=== PATIENT | male | born 1945 | race Caucasian/White ===

== ENCOUNTER → 2019-03-28 08:43 | Outpatient (CLI) | payer MEDICARE, OTHER, SELFPAY ==
--- NOTE | 2019-03-28 09:07 | MRI_ITS ---
HISTORY: TINNITUS, HEARING LOSS RIGHT EAR EXAMINATION: MR Brain WO/W Contrast TECHNIQUE: Multiplanar and multisequence MR images of the brain were obtained with and without IV gadolinium. IV Contrast dosage and agent: 15 cc Dotarem COMPARISON: None FINDINGS: PARANASAL SINUSES AND MASTOID AIR CELLS: Mild polypoid mucosal thickening floor of the right maxillary sinus. Otherwise clear. CALVARIUM: Unremarkable. INTRACRANIAL HEMORRHAGE: No evidence of intracranial hemorrhage. BRAIN PARENCHYMA: No acute infarct. Cerebrum, cerebellum and brainstem are unremarkable. Normal sella turcica, pituitary gland, infundibular stalk, optic chiasm and hypothalamus. The internal auditory canals are patent. No mass effect or midline shift. Central and cortical involutional changes are noted. Scattered chronic appearing small in size and number of FLAIR/T2 hyperintensities in the cerebral white matter. CONTRAST: No abnormal enhancement. CSF SPACES: Appropriate for age. There is no hydrocephalus. Patent basal cisterns. VASCULAR SYSTEM: Normal flow voids in the major intracranial circulation. ORBITS: Both globes, extraocular muscles, optic nerves and retrobulbar fat appear unremarkable. IMPRESSION: No acute intracranial process. Mild chronic microangiopathic change in the white matter. at 1110 Reported and signed by: Krzysztof Braun MD Electronically Signed: Krzysztof Braun, at 11:08 EDT Tel , Service support , HISTORY: TINNITUS, HEARING LOSS RIGHT EAR EXAMINATION: MR Attn IACs and/or Temporal Bones WO/W Contrast TECHNIQUE: Multiplanar and multisequence MR images of the brain and small field of view sequences of the internal auditory canals were obtained before and after the administration of IV contrast. IV Contrast dosage and agent: 15 cc Dotarem. COMPARISON: None FINDINGS: RIGHT SIDE: SUPERFICIAL SOFT TISSUES: Unremarkable. MASTOID AIR CELLS: Well aerated, unremarkable. EXTERNAL AUDITORY CANALS AND MIDDLE EAR CAVITIES: Well aerated. INTERNAL AUDITORY CANALS: Unremarkable bilateral internal auditory canals. No intracanalicular schwannoma. INNER EAR: Unremarkable cochlea, vestibule and semicircular canals. CONTRAST: No abnormal enhancement of CN VII or VIII. LEFT SIDE: SUPERFICIAL SOFT TISSUES: Unremarkable. MASTOID AIR CELLS: Well aerated, unremarkable. EXTERNAL AUDITORY CANALS AND MIDDLE EAR CAVITIES: Well aerated. INTERNAL AUDITORY CANALS: Unremarkable bilateral internal auditory canals. No intracanalicular schwannoma. INNER EAR: Unremarkable cochlea, vestibule and semicircular canals. CONTRAST: No abnormal enhancement of CN VII or VIII. VISUALIZED BRAIN AND POSTERIOR FOSSA: Cerebello-pontine angles are unremarkable. MRI/Brain W/WO Contrast IMPRESSION: Unremarkable pre and post-contrast MRI of the internal auditory canals. at 1111 Reported and signed by: Krzysztof Braun MD Electronically Signed: Krzysztof Braun, at 11:10 EDT Tel , Service support ,
[2019-03-28 09:45] LABS: CREATININE FINGERSTICK 0.9 mg/dL (0.70-1.30); EGFR FINGERSTICK > 60.0000 mL/min (>60)
== END ==
PROVIDERS: Family Provider Internal Medicine; PCP Internal Medicine; Referring Provider Otolaryngology Otolaryngology/Facial Plastic Surgery; Visit Provider Otolaryngology Otolaryngology/Facial Plastic Surgery
DX: H93.11 Tinnitus, right ear (principal); H91.91 Unspecified hearing loss, right ear
CPT/HCPCS: 70553; A9575

== ENCOUNTER 2022-10-17 13:10 | Emergency (ER) | payer MEDICARE, OTHER, SELFPAY ==
[2022-10-17 13:11] VITALS: BP 114/87; PULSE 155; RESP 15; TEMP 35.9; O2SAT 99; BMI 24.6
[2022-10-17 13:49] VITALS: BP 145/99; PULSE 152; RESP 18; O2SAT 99
--- NOTE | 2022-10-17 13:56 | EKG12_ITS ---
Test Reason : HIGH HR Blood Pressure : / mmHG Vent. Rate : 151 BPM Atrial Rate : 302 BPM P-R Int : 000 ms QRS Dur : 134 ms QT Int : 314 ms P-R-T Axes : 270 008 -76 degrees QTc Int : 497 ms Atrial flutter with 2:1 A-V conduction Non-specific intra-ventricular conduction block Nonspecific T wave abnormality Abnormal ECG Confirmed by TRENTON GIANG, ARACELI ([id number]), assignment desk editor KARISHMA LYNN ([id number]) on 10/19/2022 1:46:06 PM Referred By: BB Confirmed By:ARACELI CHOWDHURY MD
--- NOTE | 2022-10-17 13:59 | EKG12_ITS ---
Test Reason : RE CHACK Blood Pressure : / mmHG Vent. Rate : 069 BPM Atrial Rate : 069 BPM P-R Int : 166 ms QRS Dur : 076 ms QT Int : 350 ms P-R-T Axes : 059 007 055 degrees QTc Int : 375 ms Normal sinus rhythm with sinus arrhythmia Nonspecific ST and T wave abnormality Abnormal ECG Confirmed by TRENTON GIANG, ARACELI ([id number]), script editor KARISHMA LYNN ([id number]) on 10/19/2022 1:45:49 PM Referred By: Confirmed By:ARACELI CHOWDHURY MD
--- NOTE | 2022-10-17 14:05 | ED.RN ---
pt converted to sinus rhythm on own.
[2022-10-17 14:07] LABS: Absolute Lymphocyte Count 1.89 X10^3/uL (0.83-4.51); Absolute Neutrophil Count 4.7 X10^3/uL (2.0-7.7); Basophil# 0.07 X10^3/uL; Basophil% 0.9 % (0-1); Eosinophil# 0.12 X10^3/uL; Eosinophils% 1.6 % (0-5); Hematocrit 46.2 % (40-54); Hemoglobin 15.7 g/dL (13.0-16.5); Lymphocyte # 1.89 X10^3/ul (0.83-4.51); Lymphocyte % 25.2 % (19-41); Mean Corpuscular Hgb 31.3 pg (27.0-32.0); Mean Platelet Vol. 8.7 fl (6.2-12.0); Monocyte# 0.67 X10^3/uL; Monocyte% 8.9 % (0-10); NRBC Flagged by Analyzer 0 % (0-5); Neutrophil # 4.73 X10^3/uL (2.7-7.7); Platelet Count 240 K/mm3 (150-450); RBC Distribution Width CV 13.4 % (11.6-14.6); RBC Distribution Width SD 45.3 fl (35.1-43.9); Red Blood Count 5.02 M/mm3 (4.6-6.2); White Blood Count 7.5 K/mm3 (4.4-11.0)
[2022-10-17 14:24] LABS: Anion Gap 9 (5-15); BUN 16 mg/dL (7-18); BUN/Creat Ratio 14.7 RATIO (10-20); Calcium,Total 9.7 mg/dL (8.5-10.1); Chloride 105 mmol/L (98-107); Creatinine, Serum 1.09 mg/dL (0.70-1.30); EST Glomerular Filtration Rate 70 mL/min (>60); Est Glom Filt Rate - Afr Amer 84 mL/min (>60); Glucose 110 mg/dL (74-106); Potassium 3.6 mmol/L (3.5-5.1); Sodium Level 140 mmol/L (136-145); Troponin-I HS 40 pg/mL (3.0-78.0)
--- NOTE | 2022-10-17 15:45 | EDS_ITS ---
HPI History of Present Illness Chief Complaint: Palpitations Informant: patient Onset/Context/Timing Onset: Yesterday Context: Sudden Onset Timing: Intermittent and Lasts (hrs) Quality: racing HB Location: chest Current Severity: Moderate Maximum Severity: Moderate Worsened by: nothing in particular Relieved by: nothing Associated Symptoms Associated Symptoms: see below. no CP/sob/near-syncope or syncope. Narrative Narrative: Patient started having respiratory illness and feeling poorly 3 days ago he did a home COVID test that was positive. He is vaccinated against COVID. Yesterday started feeling palpitations off-and-on, more brief then today, he verified that his heart was very fast on his apple watch. He denies any other symptoms associated with this such as chest discomfort, dyspnea, lightheadedness or syncope. He went to [facility] urgent care today primarily to look into an oral antiviral. They did an EKG because of his tachycardia and seen that he was in a flutter referred him to the ER here. This is all according to the patient, who is the only independent historian here. He does not have a history of any cardiac illness/pathology, nor dysrhythmia. He states he has been drinking caffeine tries to help stay alert and awake, and taking decongestants recently since he has been ill. [facility] Medical History Arthritis Enlarged prostate Hyperlipemia Home Medications atorvastatin 20 mg tablet 20 mg PO DAILY 10/17/22 [History Last Taken Unknown] fluticasone propionate 50 mcg/actuation nasal spray,suspension 1 spray intranasal DAILY 10/17/22 [History Last Taken Unknown] loratadine 10 mg tablet (Claritin) 10 mg PO DAILY 10/17/22 [History Last Taken Unknown] meloxicam 15 mg tablet 15 mg PO PRN PRN Pain 10/17/22 [History Last Taken Unknown] metoprolol tartrate 25 mg tablet 25 mg PO BID #60 tabs 10/17/22 [Rx Last Taken Unknown] tamsulosin 0.4 mg capsule 0.4 mg PO DAILY 10/17/22 [History Last Taken Unknown] Allergy/AdvReac Type Severity Reaction Status Date / Time celecoxib [From Celebrex] Allergy Swelling Verified 10/17/22 13:11 Surgical History History of appendectomy Social History Smoking Status: Never smoker ROS ROS ED Constitutional Constitutional ED: Reports malaise; Denies chills or fever(s) Eyes Eyes: Denies change in vision or diplopia ENT ENT ED: Reports nasal congestion; Denies ear pain, rhinorrhea or sore throat Cardiovascular Cardiovascular: Reports palpitations and racing heartbeat; Denies chest pain Respiratory/Chest Respiratory/Chest: Reports cough; Denies dyspnea Gastrointestinal Gastrointestinal: Denies abdominal pain, diarrhea, nausea or vomiting Genitourinary Genitourinary ED: Denies dysuria or hematuria Musculoskeletal Musculoskeletal: Denies back pain or neck pain Integumentary Denies abscess or rash Neurologic Neurologic: Denies headache(s), paresthesias or weakness Psychiatric Psychiatric: Denies anxiety or suicidal thoughts EXAM Physical Exam Const Vital Signs: 10/17/22 13:11 10/17/22 13:47 10/17/22 13:49 Temperature 96.7 F L Temperature Source Temporal Pulse Rate 155 H 152 H Respiratory Rate 15 18 Respiratory Pattern Normal Blood Pressure 114/87 H 145/99 H Blood Pressure Mean 96 114 Pulse Ox 99 99 Oxygen Delivery Method Room Air Room Air Positive well nourished and well developed General Appearance ED: well developed and NAD HEENT Reports moist mucous membranes normocephalic and atraumatic Eyes PERRL and EOMs intact bilaterally Neck full ROM and supple Resp normal respiratory effort and clear to auscultation bilaterally Cardio regular rate and regular rhythm Rate: tachycardic GI non-tender and non-distended Auscultation: normoactive bowel sounds Palpation: soft Back/Spine no CVA tenderness General Back: other FROM Extremity normal to inspection General Extremety ED: Negative for edema, pulses abnormal or tenderness General Extremity: Negative for edema or pulses abnormal Neuro oriented x3, CN's II-XII intact bilaterally and no sensory deficits noted Sensorium / Orientation: awake and alert Motor Exam: strength 5/5 throughout Skin no rashes or lesions noted and no wounds MDM MDM MDM Narrative Medical decision making narrative: Patient has no history of DVT or PE, has no clinical signs of a DVT at this time , nor calf tenderness/Homans' sign which is negative, and does not have any symptoms of a PE either. Aside from his tachycardia his vital signs are normal. Working him up with electrolytes and a troponin, and we were going to administer adenosine in case this was antidromic atrial flutter, it could actually break it, also considering the option of electrocardioversion as well which I discussed with the patient. Prior to any of this even being started, the patient self-converted to normal sinus rhythm, felt his palpitations resolved, and repeat EKG shows sinus rhythm with the same morphology but resolution of the repolarization abnormalities which are likely rate dependent, and no acute ischemic abnormalities. His troponin returned within normal limits, he did not have any recurrence of his symptoms or dysrhythmia while in the emergency department. Discussed with Dr. Carpenter, he agrees with outpatient follow-up and recommends metoprolol tartrate 25 mg twice daily as well as a baby aspirin, this was relayed to the patient he is comfortable with that plan. Also discussed with the patient to avoid decongestants and other stimulants for now, and we also discussed the oral antivirals. He is vaccinated, the current variants are of decreased virulence, and I think that the benefits of the antivirals do not necessarily outweigh the potential risks especially since he is on cholesterol medication. He is understanding and comfortable with that plan. Lab Data Attestation: I reviewed the patient's lab results. Labs: Laboratory Results - last 24 hr 10/17/22 10/17/22 13:40 13:40 WBC 7.5 RBC 5.02 Hgb 15.7 Hct 46.2 MCV 92.0 MCH 31.3 MCHC 34.0 RDW Std Deviation 45.3 H RDW Coeff of Kumar 13.4 Plt Count 240 MPV 8.7 Immature Gran % (Auto) 0.400 Neut % (Auto) 63.0 Lymph % (Auto) 25.2 [place] % (Auto) 8.9 Eos % (Auto) 1.6 Baso % (Auto) 0.9 Absolute Neuts (auto) 4.7 Absolute Lymphs (auto) 1.89 Nucleated RBC % 0 Sodium 140 Potassium 3.6 Chloride 105 Carbon Dioxide 26.0 Anion Gap 9 BUN 16 Creatinine 1.09 Estim Creat Clear Calc 58.60 Est GFR (MDRD) Af Amer 84 Est GFR (MDRD) Non-Af 70 BUN/Creatinine Ratio 14.7 Glucose 110 H Calcium 9.7 Troponin I High Sens 40 Rhythm Strip Rhythm Strip: Atrial flutter Rate: 150 Ectopy: None EKG Initial EKG: Attestation: I personally reviewed and interpreted this EKG as follows: Interpretation: No Acute Injury Pattern, Atrial Flutter and Non-Specific ST Changes Follow-up EKG: Attestation: I personally reviewed and interpreted this EKG as follows: Interpretation: Sinus Rhythm and No Acute Injury Pattern Prior: Changed Discharge Plan Triage Chief Complaint: Palpitations ED Provider: Jonel Ortega Dx/Rx/DC Orders Clinical Impression: Paroxysmal atrial flutter, COVID-19 Instructions: ED Atrial Flutter Prescriptions: New metoprolol tartrate 25 mg tablet 25 mg PO BID Qty: 60 0RF No Action atorvastatin 20 mg tablet 20 mg PO DAILY Label Comments: TAKE 1 TABLET BY MOUTH ONCE DAILY AT BEDTIME meloxicam 15 mg tablet 15 mg PO PRN PRN (Reason: Pain) tamsulosin 0.4 mg capsule 0.4 mg PO DAILY Label Comments: TAKE 1 CAPSULE BY MOUTH ONCE DAILY AT BEDTIME fluticasone propionate [Flonase] 50 mcg/actuation Redig,Suspension 1 spray INTRANASAL DAILY Rx Instructions: administer into each nostril loratadine [Claritin] 10 mg Tablet 10 mg PO DAILY Primary Care Provider: Ector Rivera Referrals: Jeny Carpenter MD [Med Staff - Active Staff] - As soon as possible (call Wednesday for an appt) Ector Rivera MD [Primary Care Provider] - Activity Restrictions/Additional Instructions: Take baby aspirin once daily in addition to the prescription. Avoid decongestants including nasal sprays that contain phenylephrine, pseudoephedrine , oxymetazoline. Disposition Disposition: Home, Self Care
[2022-10-17 15:52] VITALS: BP 127/86; PULSE 69; RESP 16; O2SAT 99
--- NOTE | 2022-10-17 15:54 | ED.RN ---
patient converted on his own and adenosine was not given
[2022-10-17] MEDS: Aspirin 81 MG TAB.CHEW PO (15:58)
[2022-10-17] MEDS: Metoprolol Tartrate 50 MG Tablet 25 MG PO (15:58)
== END 2022-10-17 16:13 | disposition home or self-care (01) ==
PROVIDERS: Emergency Provider Emergency Medicine; PCP Internal Medicine; Visit Provider Emergency Medicine
DX: I48.92 Unspecified atrial flutter (principal); U07.1 COVID-19; E78.5 Hyperlipidemia, unspecified; N40.0 Benign prostatic hyperplasia without lower urinary tract symptoms; Z79.899 Other long term (current) drug therapy
CPT/HCPCS: 80048; 84484; 85025; 93005; 99284; J7030; A4216

== ENCOUNTER → 2022-11-25 | Outpatient (CLI) | payer MEDICARE, OTHER, SELFPAY ==
[2022-11-25 15:11] LABS: Anion Gap 8 (5-15); BUN 25 mg/dL (7-18); BUN/Creat Ratio 25.6 RATIO (10-20); Calcium,Total 9.8 mg/dL (8.5-10.1); Chloride 106 mmol/L (98-107); Creatinine, Serum 0.98 mg/dL (0.70-1.30); EST Glomerular Filtration Rate 79 mL/min (>60); Est Glom Filt Rate - Afr Amer 96 mL/min (>60); Glucose 107 mg/dL (74-106); Magnesium 2.2 mg/dL (1.6-2.6); Potassium 3.8 mmol/L (3.5-5.1); Sodium Level 144 mmol/L (136-145)
== END | disposition home or self-care (01) ==
LOC: LAB 14:09
PROVIDERS: PCP Internal Medicine; Visit Provider Internal Medicine Cardiovascular Disease
DX: I48.92 Unspecified atrial flutter (principal)
CPT/HCPCS: 36415; 80048; 83735

== ENCOUNTER → 2022-12-16 | Outpatient (CLI) | payer MEDICARE, OTHER, SELFPAY ==
--- NOTE | 2022-12-16 11:15 | STRESSREP_ITS ---
Stress Test Report Date: 12/16/2022 Procedure: Exercise tolerance test/imaging study Indications: Arrhythmia Consent: Per the patient Procedure: The patient exercised on a Chandana protocol for 7 minutes achieving a peak heart rate of 137 bpm (95% predicted maximal heart rate) with a peak blood pressure 160/90 mmHg and a peak MET capacity of 10.1 METs. The baseline ECG demonstrated sinus rhythm. The peak exercise ECG demonstrated no definitive ischemic changes. There were no cardiac dysrhythmias pretest, during exercise, or recovery. The functional capacity was considered average. There was no complaint of chest discomfort during exercise or recovery. The examination was discontinued secondary to target heart rate being achieved. The patient was injected with 11.7 mCi of technetium 99m Cardiolite and subsequently rest SPECT Cardiolite nuclear imaging was obtained in the horizontal long, vertical long, and short axis views. Post-exercise, the patient was injected with 36.0 mCi of technetium 99m Cardiolite and subsequently stress SPECT Cardiolite nuclear imaging was obtained in the horizontal long, vertical long, and short axis views. A gated Cardiolite study at peak stress was obtained. Rest and stress SPECT Cardiolite nuclear imaging status post realignment, normalization, and attenuation correction, demonstrates the appearance of relative uniform tracer uptake and myocardial perfusion appearing within normal limits. There is end systolic thickening and brightening. The gated Cardiolite study demonstrates myocardial thickening and inward wall motion. The reported LVEF is 64%. Impression: 1. Technically adequate (percent predicted maximal heart rate greater than 85%) exercise tolerance test 2. Peak exercise ECG with nondiagnostic changes 3. There were no cardiac dysrhythmias pretest, during exercise, or recovery 4. Rest and stress SPECT Cardiolite nuclear imaging demonstrate no fixed or reversible perfusion defects. 5. The gated Cardiolite study reports an LVEF of 64%. This note was generated with [employer] software. It may contain incorrect words, spelling, and punctuation that were not noted in checking the note before signing.
== END | disposition home or self-care (01) ==
LOC: CVS 06:38
PROVIDERS: PCP Internal Medicine; Referring Provider Internal Medicine Cardiovascular Disease; Visit Provider Internal Medicine Cardiovascular Disease
DX: I47.29 Other ventricular tachycardia (principal); R94.31 Abnormal electrocardiogram [ECG] [EKG]
CPT/HCPCS: 78452; 93017; A9500; A4216

== ENCOUNTER 2023-07-14 08:27 | Emergency (ER) | payer MEDICARE, OTHER, SELFPAY ==
[2023-07-14 08:28] VITALS: BP 123/91; PULSE 84; RESP 16; TEMP 36.4; O2SAT 97; BMI 24.3
[2023-07-14 08:37] VITALS: BP 115/102; PULSE 132; O2SAT 97
--- NOTE | 2023-07-14 08:59 | EKG12_ITS ---
Test Reason : PALPATATIONS Blood Pressure : / mmHG Vent. Rate : 132 BPM Atrial Rate : 000 BPM P-R Int : 000 ms QRS Dur : 060 ms QT Int : 306 ms P-R-T Axes : 000 000 -78 degrees QTc Int : 453 ms Atrial fibrillation with rapid ventricular response Nonspecific ST and T wave abnormality Abnormal ECG Confirmed by TRENTON GIANG, ARACELI ([id number]), editor in chief RUTH LUCIO ([id number]) on 07/20/2023 7:02:58 AM Referred By: Confirmed By:ARACELI CHOWDHURY MD
--- NOTE | 2023-07-14 08:59 | RAD_ITS ---
STUDY: X-RAY CHEST REASON FOR EXAM: Male, 77 years old. Palpitations -- -- PT STATES HE IS IN A FIB- HX OF THE SAME TECHNIQUE: Single AP portable view of the chest. COMPARISON: None. FINDINGS: EKG electrodes are seen. Hyperinflation. The lungs are clear. There is no demonstrated pleural abnormality. Normal size heart. Normal mediastinum and holland. Normal visualized pulmonary arteries. Normal visualized aortic arch and descending thoracic aorta. There are diffuse degenerative changes of the visualized thoracic spine. Normal visualized ribs, clavicles, and shoulders. There is no demonstrated abnormality of the visualized soft tissue structures of the upper abdomen. RAD/Chest 1 View (Portable) IMPRESSION: Hyperinflation. The lungs are clear. Electronically Signed: Trevor Solano MD at 9:59 EDT ,
--- NOTE | 2023-07-14 09:00 | EDS_ITS ---
HPI History of Present Illness Chief Complaint: Palpitations Informant: patient Onset/Context/Timing Onset: Today Narrative Narrative: Patient presents with palpitations and believes he is back in A-fib. He had epi sode of paroxysmal A-fib in October. He converted on his own. He was placed on carvedilol 6.25 mg twice daily but was not started on anticoagulation. Patient states he got up at 430 this morning to go the bathroom and felt palpitations. His Apple Watch told him his heart rate was 155. He denies chest pain. He does not feel lightheaded or dizzy. [facility] Medical History Abnormal EKG Actinic skin damage Arthritis BPH w urinary obs/LUTS Bradyarrhythmia COVID-19 Dyslipidemia Elevated PSA Enlarged prostate History of atrial flutter Hyperlipidemia Lumbar radiculopathy NSVT (nonsustained ventricular tachycardia) Osteoarthritis Paroxysmal atrial flutter Primary cutaneous T-cell lymphoma Rhinitis, nonallergic, chronic Vitamin D deficiency Home Medications atorvastatin 20 mg tablet 20 mg PO DAILY 10/17/22 [History Last Taken Unknown] tamsulosin 0.4 mg capsule 0.4 mg PO DAILY 10/17/22 [History Last Taken Unknown] aspirin 81 mg tablet,delayed release 81 mg PO DAILY 11/24/22 [History Last Taken Unknown] cholecalciferol (vitamin D3) 50 mcg (2,000 unit) capsule 50 mcg PO DAILY 11/24/22 [History Last Taken Unknown] fluticasone propionate 50 mcg/actuation nasal spray,suspension 2 spray intranasal DAILY 11/24/22 [History Last Taken Unknown] loratadine 10 mg tablet (Claritin) 10 mg PO DAILY PRN allergic symptoms 11/24/22 [History Last Taken Unknown] meloxicam 15 mg tablet 15 mg PO DAILY PRN Pain 11/24/22 [History Last Taken Unknown] multivitamin 1 tab PO DAILY 11/24/22 [History Last Taken Unknown] diclofenac sodium 1 % topical gel (Voltaren Arthritis Pain) 2 g topical ONCE PRN 11/25/22 [History Last Taken Unknown] carvedilol 6.25 mg tablet 6.25 mg PO BID #180 tabs 06/16/23 [Rx Last Taken Unknown] diltiazem HCl 180 mg capsule,extended release 24 hr (Cardizem CD) 180 mg PO DAILY #30 caps 07/14/23 [Rx Last Taken Unknown] rivaroxaban 15 mg (42)-20 mg (9) tablets in a starter pack (Xarelto DVT-PE Treatment 30-Day Starter) See Rx Instructions PO .COMPLEX #51 tabs 07/14/23 [Rx Last Taken Unknown] Allergy/AdvReac Type Severity Reaction Status Date / Time clindamycin Allergy Mild Hives Verified 07/14/23 08:29 celecoxib [From Celebrex] Allergy Swelling Verified 07/14/23 08:29 Family History Father Heart disease CAD (coronary artery disease) Surgical History History of appendectomy History of left cataract extraction (~11/2022) History of right cataract extraction (~12/2022) Social History Smoking Status: Never smoker alcohol intake: current alcohol intake frequency: holidays/special occasions only substance use type: does not use caffeine: Yes Type: coffee Number of servings: 2 ROS ROS ED Constitutional Constitutional ED: Denies chills or fever(s) Eyes Eyes: Denies change in vision ENT ENT ED: Denies rhinorrhea or sore throat Cardiovascular Cardiovascular: Reports palpitations; Denies chest pain Respiratory/Chest Respiratory/Chest: Denies cough or dyspnea Gastrointestinal Gastrointestinal: Denies abdominal pain, nausea or vomiting Genitourinary Genitourinary ED: Denies dysuria Musculoskeletal Musculoskeletal: Denies back pain or extremity pain Integumentary Denies Abrasions or rash Neurologic Neurologic: Denies headache(s) or weakness Psychiatric Psychiatric: Denies anxiety or depression Allergic/Immunologic Allergic/Immunologic ED: Denies lip swelling or urticaria EXAM Physical Exam Const Vital Signs: 07/14/23 08:28 07/14/23 08:37 07/14/23 10:29 Temperature 97.6 F L Temperature Source Temporal Pulse Rate 84 132 H 117 H Respiratory Rate 16 Blood Pressure 123/91 H 115/102 H 126/92 H Blood Pressure Mean 101 106 103 Pulse Ox 97 97 96 Oxygen Delivery Method Room Air 07/14/23 11:11 Temperature Temperature Source Pulse Rate 120 H Respiratory Rate 16 Blood Pressure 123/75 H Blood Pressure Mean 91 Pulse Ox 95 Oxygen Delivery Method Positive well nourished and well developed General Appearance ED: well developed HEENT Reports normocephalic and head/scalp atraumatic Eyes PERRL and EOMs intact bilaterally Neck supple Chest Wall inspection of chest normal and palpation of chest normal Resp normal respiratory effort and clear to auscultation bilaterally Cardio Rate: tachycardic Rhythm: abnormal rhythm irregularly irregular GI non-tender Palpation: soft Extremity normal to inspection Neuro oriented x3 and no sensory deficits noted Sensorium / Orientation: alert Motor Exam: strength 5/5 throughout Psych mental status grossly normal Skin no rashes or lesions noted MDM MDM MDM Narrative Medical decision making narrative: Patient placed on monitoring tech. Heart rate is in the 1 teens at the time of my exam. He is given 10 mg of IV Cardizem for rate control. Labwork obtained to evaluate for leukocytosis, anemia, and electrolyte derangement. Chest x-ray obtained to evaluate for acute lung pathology, cardiac size, or mediastinal abnormality. History & Record Review Discussion w/independent historian: Patient and Family Additional record(s) reviewed:: Prior outpatient record, Prior ED visit and Prior labs Lab Data Attestation: I reviewed the patient's lab results. Labs: Laboratory Results - last 24 hr 07/14/23 08:44 WBC 7.3 RBC 4.85 Hgb 14.8 Hct 44.4 MCV 91.5 MCH 30.5 MCHC 33.3 RDW Std Deviation 42.8 RDW Coeff of Kumar 12.7 Plt Count 200 MPV 9.5 Immature Gran % (Auto) 0.400 Neut % (Auto) 57.3 Lymph % (Auto) 31.3 Coles % (Auto) 8.0 Eos % (Auto) 1.9 Baso % (Auto) 1.1 H Absolute Neuts (auto) 4.2 Absolute Lymphs (auto) 2.27 Nucleated RBC % 0 Sodium 142 Potassium 3.9 Chloride 113 H Carbon Dioxide 23.0 Anion Gap 6 BUN 23 H Creatinine 0.92 Estim Creat Clear Calc 69.43 Est GFR (MDRD) Af Amer 103 Est GFR (MDRD) Non-Af 85 BUN/Creatinine Ratio 25.1 H Glucose 115 H Calcium 9.2 Troponin I High Sens 8 TSH 3.03 Radiography Chest X-Ray - ED: 1 View, Read by ED Physician, Normal, Heart, Lungs and Mediastinum Diagnostic Testing: Clinical Impression(s) from Imaging Studies Chest X-Ray 07/14/23 08:59 IMPRESSION: Hyperinflation. The lungs are clear. Electronically Signed: Trevor Solano MD at 9:59 EDT , EKG Initial EKG: Attestation: I personally reviewed and interpreted this EKG as follows: Interpretation: Atrial Fibrillation (A-fib with RVR with ventricular rate of 132. Minimal ST depression in the lateral precordial leads.) Treatment and Re-Evaluation :: Heart rate did improve into the 90s after Cardizem but is now increasing tween 100 110 now. He has remained in A-fib. CBC reveals normal white count 7.3 and a normal hemoglobin of 14.8. Chemistry studies are unremarkable. Troponin is normal at 8. TSH is normal at 3.03. I spoke with Dr. Justice, on-call for cardiology. Initially discussed placing the patient on a blood thinner and increasing his carvedilol, however patient is concerned that he has no energy on the beta-blockers and his resting heart rate will drop into the 50s. We will switch the patient to Cardizem 180 CD instead of beta-milton. He will also begin prescription for Xarelto. He will follow- up in the cardiology office in the next couple weeks and if not converted we will discuss possible cardioversion at that time. Directions are given. Discharge Plan Triage Chief Complaint: Palpitations ED Provider: Bria Rao Dx/Rx/DC Orders Clinical Impression: Atrial fibrillation Instructions: ED AFIB Prescriptions: New diltiazem HCl [Cardizem CD] 180 mg capsule,extended release 24hr 180 mg PO DAILY Qty: 30 0RF Xarelto DVT-PE Treat 30d Start 15 mg (42)- 20 mg (9) tablets,dose pack See Rx Instructions .ROUTE .COMPLEX Qty: 51 0RF Rx Instructions: take one-15 mg tablet twice daily for 21 days, then one-20 mg tablet once daily; must take with meal/food No Action aspirin 81 mg tablet,delayed release (DR/EC) 81 mg PO DAILY multivitamin Tablet 1 tab PO DAILY cholecalciferol (vitamin D3) 50 mcg (2,000 unit) capsule 50 mcg PO DAILY diclofenac sodium [Voltaren Arthritis Pain] 1 % gel 2 g topical ONCE PRN Rx Instructions: knee carvedilol 6.25 mg tablet 6.25 mg PO BID Qty: 180 3RF Rx Instructions: must administer with a meal/food atorvastatin 20 mg tablet 20 mg PO DAILY Patient Comments: TAKE 1 TABLET BY MOUTH ONCE DAILY AT BEDTIME tamsulosin 0.4 mg capsule 0.4 mg PO DAILY Patient Comments: TAKE 1 CAPSULE BY MOUTH ONCE DAILY AT BEDTIME fluticasone propionate 50 mcg/actuation spray,suspension 2 spray INTRANASAL DAILY Rx Instructions: administer into each nostril meloxicam 15 mg tablet 15 mg PO DAILY PRN (Reason: Pain) loratadine [Claritin] 10 mg tablet 10 mg PO DAILY PRN (Reason: allergic symptoms) Primary Care Provider: Ector Rivera Referrals: Bonnie Huitron MD [Med Staff - Active Staff] - 1-2 Weeks Ector Rivera MD [Primary Care Provider] - Disposition Disposition: Home, Self Care
[2023-07-14] MEDS: dilTIAZem 25 MG/5 ML Vial 10 MG IV BOLUS (09:09)
[2023-07-14] MEDS: 0.9% Normal Saline (1000mL) 1,000 ML 150 ML IV (09:09)
[2023-07-14 09:14] LABS: Absolute Lymphocyte Count 2.27 X10^3/uL (0.83-4.51); Absolute Neutrophil Count 4.2 X10^3/uL (2.0-7.7); Basophil# 0.08 X10^3/uL; Basophil% 1.1 % (0-1); Eosinophil# 0.14 X10^3/uL; Eosinophils% 1.9 % (0-5); Hematocrit 44.4 % (40-54); Hemoglobin 14.8 g/dL (13.0-16.5); Lymphocyte # 2.27 X10^3/ul (0.83-4.51); Lymphocyte % 31.3 % (19-41); Mean Corp Hgb Conc 33.3 g/dL (32-36); Mean Corpuscular Hgb 30.5 pg (27.0-32.0); Mean Corpuscular Volume 91.5 fL (80-94); Mean Platelet Vol. 9.5 fl (6.2-12.0); Monocyte# 0.58 X10^3/uL; NRBC Flagged by Analyzer 0 % (0-5); Neutrophil # 4.15 X10^3/uL (2.7-7.7); Neutrophil % 57.3 % (47-70); Platelet Count 200 K/mm3 (150-450); RBC Distribution Width CV 12.7 % (11.6-14.6); RBC Distribution Width SD 42.8 fl (35.1-43.9); Red Blood Count 4.85 M/mm3 (4.6-6.2); White Blood Count 7.3 K/mm3 (4.4-11.0)
[2023-07-14 09:31] LABS: Anion Gap 6 (5-15); BUN 23 mg/dL (7-18); BUN/Creat Ratio 25.1 RATIO (10-20); Calcium,Total 9.2 mg/dL (8.5-10.1); Chloride 113 mmol/L (98-107); Creatinine, Serum 0.92 mg/dL (0.70-1.30); EST Glomerular Filtration Rate 85 mL/min (>60); Est Glom Filt Rate - Afr Amer 103 mL/min (>60); Estimated Creatinine Clearance 69.43 ml/min; Glucose 115 mg/dL (74-106); Potassium 3.9 mmol/L (3.5-5.1); Sodium Level 142 mmol/L (136-145); Troponin-I HS 8 pg/mL (3.0-78.0)
[2023-07-14] MEDS: 0.9% Normal Saline (500mL Bag) 500 ML 1000 ML IV (09:32)
[2023-07-14 10:29] VITALS: BP 126/92; PULSE 117; O2SAT 96
[2023-07-14 10:43] LABS: Thyroid Stim Hormone (TSH) 3.03 uIU/mL (0.358-3.74)
[2023-07-14 11:11] VITALS: BP 123/75; PULSE 120; RESP 16; O2SAT 95
[2023-07-14] MEDS: dilTIAZem CD 180 MG Capsule PO (11:54)
[2023-07-14 11:57] VITALS: BP 138/74; PULSE 61; RESP 15; O2SAT 96
== END 2023-07-14 11:59 | disposition home or self-care (01) ==
PROVIDERS: Emergency Provider Emergency Medicine; PCP Internal Medicine; Visit Provider Emergency Medicine
DX: I48.91 Unspecified atrial fibrillation (principal); Z86.16 Personal history of COVID-19
CPT/HCPCS: 71045; 80048; 84443; 84484; 85025; 93005; 96361; 96374; 99285; J7030; A4216

== ENCOUNTER → 2024-05-03 | Outpatient (CLI) | payer MEDICARE, OTHER, SELFPAY ==
--- NOTE | 2024-05-03 08:41 | VDLE_ITS ---
Reason For Study: BLE PAin RIGHT LEFT GSV is normal. GSV is normal. CFV is compressible, spontaneous, phasic, CFV is compressible, spontaneous, phasic, competent and demonstrates normal competent, and demonstrates normal augmentation. augmentation. FV is compressible, spontaneous, phasic, FV is compressible, spontaneous, phasic, competent and demonstrates normal competent and demonstrates normal augmentation. augmentation. POP V is compressible, spontaneous, phasic, POP V is compressible, spontaneous, phasic, competent and demonstrates normal competent and demonstrates normal augmentation. augmentation. T/P Trunk is compressible. T/P Trunk is compressible. PTV is compressible. PTV is compressible. RT PerV is compressible. LT PerV is compressible. Procedure This is a venous duplex using B-mode, color flow and spectral Doppler. Exam performed in department. The exam was diagnostic. VL/Venous Duplex US - Abhay Extrem Interpretation Summary Deep veins of the bilateral lower extremities are patent and compressible segme ntally. There is no evidence of bilateral lower extremity deep vein thrombosis. The bilateral great saphenous veins appear patent and compressible segmentally. Ordering Physician: Oswaldo Palmer Referring Physician: Ector Rivera M.D. Performed By: Edgar Couch RVT
--- NOTE | 2024-05-03 08:42 | ART_ITS ---
Reason For Study: PVD Procedure A bilateral lower extremity continuous wave Doppler with analog waveform analysis,segmental pressures,and ankle brachial indexes without exercise. Left Segmental Pressures Left brachial= 122mmHg. Left posterior tibial artery = 151mmHg. Left dorsalis pedis artery = 141mmHg. Left digit = 147 mmHg. The left posterior tibial artery waveforms are triphasic. The left dorsalis pedis waveforms are triphasic. Right Segmental Pressures Right brachial= 130mmHg. Right posterior tibial artery = 158mmHg. Right dorsalis pedis artery = 152mmHg. Right digit = 139 mmHg. The right posterior tibial artery waveforms are triphasic. The right dorsalis pedis waveforms are triphasic. Indices The right ankle brachial index by the posterior tibial artery is 1.22. The right ankle brachial index by the dorsalis pedis is 1.17. The right digital-brachial index is 1.07. The left ankle brachial index by the posterior tibial artery is 1.16. The left ankle brachial index by the dorsalis pedis is 1.08. The left digital-brachial index is 1.13. VL/Lower Ext Art Exam w/o Exercis Interpretation Summary Right JOSUE 1.22, normal. TBI and Doppler/PVR waveforms of the right leg normal a t rest. Left JOSUE 1.16, normal. TBI and Doppler/PVR waveforms of the left leg normal at rest. Ordering Physician: Oswaldo Palmer Referring Physician: Ector Rivera M.D. Performed By: RONY SCHNEIDER Sd
== END | disposition home or self-care (01) ==
LOC: CVS 08:31
PROVIDERS: PCP Internal Medicine; Referring Provider Podiatrist Foot & Ankle Surgery; Visit Provider Podiatrist Foot & Ankle Surgery
DX: I73.89 Other specified peripheral vascular diseases (principal); M79.604 Pain in right leg; M79.605 Pain in left leg
CPT/HCPCS: 93923; 93970